=== PATIENT | female | born 2000 | race Caucasian/White ===

== ENCOUNTER 2023-04-05 08:28 | Emergency (ER) | payer OTHER ==
[~2023-04-05] VITALS: Ht 172.7 cm; Wt 60.7 kg
[2023-04-05 09:20] LABS: BASO # 0.1 10^3/uL (0.0-0.2); BASO % 0.8 % (0.0-1.0); EOS % 0.5 % (0.0-3.0); HEMATOCRIT 41.2 % (36.0-47.0); HEMOGLOBIN 14.5 g/dl (12.0-15.5); LYMPH # 1.4 10^3/uL (1.5-5.0); LYMPH % 21.9 % (24.0-44.0); MEAN CORPUSCULAR HGB CONC 35.2 g/dl (32.0-36.5); MEAN CORPUSCULAR VOLUME 88.2 fl (80.0-96.0); MONO # 0.5 10^3/uL (0.0-0.8); MONO % 7.8 % (2.0-8.0); NEUTROPHILS # 4.3 10^3/uL (1.5-8.5); NEUTROPHILS % 68.7 % (36.0-66.0); PLATELET COUNT, AUTOMATED 199 10^3/uL (150-450); RED BLOOD COUNT 4.67 10^6/uL (4.00-5.40); WHITE BLOOD COUNT 6.3 10^3/uL (4.0-10.0)
[2023-04-05 09:38] LABS: LIPASE 49 U/L (12-53)
[2023-04-05 09:40] LABS: ALBUMIN 4.2 G/DL (3.2-5.2); ALKALINE PHOSPHATASE 51 U/L (46-116); ALT/SGPT < 9 U/L (7.0-40); AMYLASE 63 U/L (30-118); AST/SGOT 9 U/L (<34); BILIRUBIN,DIRECT 0.4 MG/DL (<0.4); BILIRUBIN,TOTAL 1.2 MG/DL (0.3-1.2); TOTAL PROTEIN 6.9 G/DL (5.7-8.2)
[2023-04-05 10:49] LABS: HCG, SERUM QUANTITATIVE 181.6 MIU/ML (<4.2)
[2023-04-05 11:11] LABS: GC DNA AMPLIFICATION NEGATIVE (NEGATIVE)
[2023-04-05 11:31] VITALS: BP 118/59; TEMP 98.5; O2SAT 100
== END 2023-04-05 11:44 | disposition home or self-care (01) ==
LOC: M ED 08:28
DX: O26.891 Other specified pregnancy related conditions, first trimester (principal); R10.2 Pelvic and perineal pain; Z3A.01 Less than 8 weeks gestation of pregnancy; O99.341 Other mental disorders complicating pregnancy, first trimester; F90.9 Attention-deficit hyperactivity disorder, unspecified type; O99.331 Smoking (tobacco) complicating pregnancy, first trimester

== ENCOUNTER → 2023-04-08 | Outpatient (CLI) | payer OTHER | LOC: M LAB 09:15 | PROVIDERS: ATTEND Emergency Medicine | DX: Z33.1 Pregnant state, incidental (principal) ==

== ENCOUNTER 2023-08-09 18:58 | Inpatient (IN) | payer OTHER ==
[~2023-08-09] VITALS: Ht 172.7 cm; Wt 67.0 kg
[2023-08-09 19:33] LABS: BASO % 0.4 % (0.0-1.0); EOS % 0.2 % (0.0-3.0); HEMATOCRIT 34.6 % (36.0-47.0); HEMOGLOBIN 12.2 g/dl (12.0-15.5); LYMPH # 1.2 10^3/uL (1.5-5.0); LYMPH % 12.5 % (24.0-44.0); MEAN CORPUSCULAR HEMOGLOBIN 30.7 pg (27.0-33.0); MEAN CORPUSCULAR HGB CONC 35.3 g/dl (32.0-36.5); MEAN CORPUSCULAR VOLUME 87.2 fl (80.0-96.0); MONO # 0.4 10^3/uL (0.0-0.8); MONO % 4.3 % (2.0-8.0); NEUTROPHILS # 7.9 10^3/uL (1.5-8.5); NEUTROPHILS % 82.3 % (36.0-66.0); PLATELET COUNT, AUTOMATED 194 10^3/uL (150-450); RED BLOOD COUNT 3.97 10^6/uL (4.00-5.40); WHITE BLOOD COUNT 9.6 10^3/uL (4.0-10.0)
[2023-08-09] MEDS ORDERED: CHARCOAL ACTIVATED LIQUID 25GM/120ML BTL PO ONE (19:45)
[2023-08-09 19:48] LABS: AMPHETAMINES LEVEL URINE NEGATIVE (NEGATIVE); BARBITURATES URINE NEGATIVE (NEGATIVE); BENZODIAZEPINES URINE NEGATIVE (NEGATIVE); CANNABINOIDS URINE NEGATIVE (NEGATIVE); COCAINE METABOLITE URINE NEGATIVE (NEGATIVE); METHADONE URINE NEGATIVE (NEGATIVE); OPIATES URINE NEGATIVE (NEGATIVE); PHENCYCLIDINE URINE NEGATIVE (NEGATIVE)
[2023-08-09 19:49] LABS: ETHYL ALCOHOL (ETHANOL) 0.018 % (0.000-0.010)
[2023-08-09 19:50] LABS: SALICYLATE LEVEL < 3.0 MG/DL (<30)
[2023-08-09 19:51] LABS: ALBUMIN 3.4 G/DL (3.2-5.2); ALKALINE PHOSPHATASE 53 U/L (46-116); ALT/SGPT 12 U/L (7.0-40); AST/SGOT 22 U/L (<34); BILIRUBIN,DIRECT 0.2 MG/DL (<0.4); BILIRUBIN,TOTAL 0.4 MG/DL (0.3-1.2); BLOOD UREA NITROGEN 5 MG/DL (9-23); CALCIUM LEVEL 8.4 MG/DL (8.5-10.1); CARBON DIOXIDE LEVEL 20 MMOL/L (20-31); CHLORIDE LEVEL 108 MMOL/L (98-107); CPK CREATINE PHOSPHOKINASE 54 U/L (34-145); CREATININE FOR GFR 0.49 MG/DL (0.55-1.30); GLOMERULAR FILTRATION RATE > 60.0 (>60); GLUCOSE, FASTING 85 MG/DL (60-100); POTASSIUM SERUM 3.5 MMOL/L (3.5-5.1); SODIUM LEVEL 140 MMOL/L (136-145); TOTAL PROTEIN 6.4 G/DL (5.7-8.2)
[2023-08-09 19:53] LABS: THYROID STIMULATING HORMONE 2.169 uIU/ML (0.55-4.78)
[2023-08-09 19:59] LABS: RSV AMPLIFICATION NEGATIVE (NEGATIVE)
[2023-08-10] MEDS ORDERED: HOME MED LIST COMPLETE! XX SCH (02:50)
[2023-08-10] MEDS ORDERED: PRENATAL VITAMINS CHEWABLE TABLET PO SCH (09:00)
[2023-08-10] MEDS ORDERED: diphenhydrAMINE 25MG CAP PO PRN (10:05)
[2023-08-10] MEDS ORDERED: MOM 30ML SUSPENSION UDC PO PRN (10:05)
[2023-08-10] MEDS ORDERED: traZODone 50 MG TAB PO PRN (10:05)
[2023-08-10] MEDS ORDERED: MAALOX 30 ML SUSP *UDC PO PRN (10:05)
[2023-08-10] MEDS ORDERED: IBUPROFEN 400MG TAB PO PRN (10:05)
[2023-08-10] MEDS ORDERED: ACETAMINOPHEN TAB 650MG DOSE (2X325MG) PO PRN (10:05)
[2023-08-10 14:06] VITALS: BP 112/60; TEMP 99.1; O2SAT 100
[2023-08-11 06:22] VITALS: BP 101/64; TEMP 98.2; O2SAT 98
[2023-08-11] MEDS: SERTRALINE HCL 25 MG TABLET PO SCH (11:22)
[2023-08-11] MEDS: PRENATAL VITAMINS CHEWABLE TABLET PO SCH (11:47)
[2023-08-11 16:15] VITALS: BP 110/59; TEMP 98.9; O2SAT 98
[2023-08-12 06:32] VITALS: BP 92/58; TEMP 98; O2SAT 100
[2023-08-12] MEDS: SERTRALINE HCL 25 MG TABLET PO SCH (08:04)
[2023-08-12] MEDS: PRENATAL VITAMINS CHEWABLE TABLET PO SCH (08:04)
[2023-08-12 17:39] VITALS: BP 115/68; TEMP 98.6; O2SAT 100
[2023-08-13 06:39] VITALS: BP 99/57; TEMP 98.8; O2SAT 99
[2023-08-13] MEDS: PRENATAL VITAMINS CHEWABLE TABLET PO SCH (09:01)
[2023-08-13] MEDS: SERTRALINE HCL 25 MG TABLET PO SCH (09:01)
[2023-08-13 18:24] VITALS: BP 90/56; TEMP 99.4; O2SAT 98
[2023-08-14 06:00] VITALS: BP 104/59; TEMP 98.8; O2SAT 100
[2023-08-14] MEDS: PRENATAL VITAMINS CHEWABLE TABLET PO SCH (08:16)
[2023-08-14] MEDS: SERTRALINE HCL 25 MG TABLET PO SCH (08:16)
[2023-08-14] MEDS ORDERED: PRENCHW PO (09:18)
[2023-08-14] MEDS ORDERED: SERT25TA21 PO (09:18)
== END 2023-08-14 11:33 | disposition home or self-care (01) | DRG 833 ==
LOC: EDBD 18:58 → M ED 18:58 → M ED INP 08-10 10:01 → M PSY 08-10 14:07
PROVIDERS: ADMIT Student in an Organized Health Care Education/Training Program; ATTEND Student in an Organized Health Care Education/Training Program
DX: O99.342 Other mental disorders complicating pregnancy, second trimester (principal); Z63.0 Problems in relationship with spouse or partner; Z81.1 Family history of alcohol abuse and dependence; Z81.3 Family history of other psychoactive substance abuse and dependence; Z81.8 Family history of other mental and behavioral disorders; F32.A Depression, unspecified; T48.6X2A Poisoning by antiasthmatics, intentional self-harm, initial encounter; O9A.212 Injury, poisoning and certain other consequences of external causes complicating pregnancy, second trimester; Z3A.21 21 weeks gestation of pregnancy

== ENCOUNTER 2023-12-08 16:41 | Outpatient (CLI) | payer OTHER ==
[~2023-12-08] VITALS: Ht 172.7 cm; Wt 81.1 kg
[~2023-12-08 16:41] MED LIST: PRENCHW PO; SERT25TA21 PO
[2023-12-08 16:58] VITALS: BP 130/68
[2023-12-08] MEDS ORDERED: ACET325C5 PO (22:48)
== END 2023-12-08 17:45 | disposition home or self-care (01) ==
LOC: M LDO 16:41
PROVIDERS: ATTEND Obstetrics & Gynecology
DX: O46.93 Antepartum hemorrhage, unspecified, third trimester (principal); Z3A.38 38 weeks gestation of pregnancy; O99.343 Other mental disorders complicating pregnancy, third trimester; F32.A Depression, unspecified; F41.9 Anxiety disorder, unspecified; O36.63X0 Maternal care for excessive fetal growth, third trimester, not applicable or unspecified; Z91.51 Personal history of suicidal behavior
CPT/HCPCS: 59025; G0463

== ENCOUNTER 2023-12-08 22:41 | Outpatient (CLI) | payer OTHER ==
[~2023-12-08] VITALS: Ht 172.7 cm; Wt 81.6 kg
[2023-12-08] MEDS ORDERED: ACET325C5 PO (22:48)
[2023-12-08 22:57] VITALS: BP 122/75
[2023-12-08] MEDS ORDERED: HOME MED LIST COMPLETE! XX SCH (23:15)
[2023-12-08] MEDS: diphenhydrAMINE 50MG CAP PO ONE (23:27)
[2023-12-08] MEDS: ACETAMINOPHEN 500 MG TAB PO ONE (23:28)
[2023-12-09 01:17] VITALS: BP 120/62
[2023-12-09] MEDS: MORPHINE 10 MG/ML 1ML VIAL IV ONE (01:17)
[2023-12-09] MEDS: MORPHINE 10 MG/ML 1ML VIAL IM ONE (01:18)
[2023-12-09 01:40] LABS: BASO # 0.1 10^3/uL (0.0-0.2); BASO % 0.5 % (0.0-1.0); EOS # 0.1 10^3/uL (0.0-0.5); EOS % 0.5 % (0.0-3.0); HEMATOCRIT 32.7 % (36.0-47.0); HEMOGLOBIN 11.7 g/dl (12.0-15.5); LYMPH # 1.6 10^3/uL (1.5-5.0); LYMPH % 13.3 % (24.0-44.0); MEAN CORPUSCULAR HEMOGLOBIN 30.9 pg (27.0-33.0); MEAN CORPUSCULAR HGB CONC 35.8 g/dl (32.0-36.5); MEAN CORPUSCULAR VOLUME 86.3 fl (80.0-96.0); MONO # 0.6 10^3/uL (0.0-0.8); NEUTROPHILS # 9.6 10^3/uL (1.5-8.5); NEUTROPHILS % 80.4 % (36.0-66.0); PLATELET COUNT, AUTOMATED 157 10^3/uL (150-450); RED BLOOD COUNT 3.79 10^6/uL (4.00-5.40); WHITE BLOOD COUNT 11.9 10^3/uL (4.0-10.0)
[2023-12-09 02:17] VITALS: BP 109/56
[2023-12-09 03:19] VITALS: BP 104/58
[2023-12-09 04:20] VITALS: BP 105/56
== END 2023-12-09 05:25 | disposition home or self-care (01) ==
LOC: M LDO 22:41
PROVIDERS: ATTEND Obstetrics & Gynecology
DX: O47.1 False labor at or after 37 completed weeks of gestation (principal); Z3A.39 39 weeks gestation of pregnancy; O99.343 Other mental disorders complicating pregnancy, third trimester; F32.A Depression, unspecified; F41.9 Anxiety disorder, unspecified; Z91.51 Personal history of suicidal behavior; Z79.899 Other long term (current) drug therapy
CPT/HCPCS: 59025; 85025; 86780; 86850; 86900; 86901; 96374; G0463

== ENCOUNTER 2023-12-09 20:43 | Inpatient (IN) | payer OTHER ==
[~2023-12-09] VITALS: Ht 172.7 cm; Wt 82.8 kg
[~2023-12-09 20:43] MED LIST changes: +ACET325C5 PO
[2023-12-09 21:04] VITALS: BP 115/75
[2023-12-09] MEDS: PROMETHAZINE 25MG/ML 1ML VIAL IV ONE (21:38)
[2023-12-09] MEDS: BUTORPHANOL 2 MG/ML 1ML VIAL IV ONE (21:39)
[2023-12-10] VITALS (40 sets, daily range): BP systolic 98–134; BP diastolic 53–86
[2023-12-10 01:39] LABS: BASO # 0.1 10^3/uL (0.0-0.2); BASO % 0.6 % (0.0-1.0); EOS # 0.1 10^3/uL (0.0-0.5); HEMATOCRIT 36.6 % (36.0-47.0); HEMOGLOBIN 12.8 g/dl (12.0-15.5); LYMPH # 1.8 10^3/uL (1.5-5.0); LYMPH % 17.5 % (24.0-44.0); MEAN CORPUSCULAR HEMOGLOBIN 30.6 pg (27.0-33.0); MEAN CORPUSCULAR VOLUME 87.6 fl (80.0-96.0); MONO # 0.6 10^3/uL (0.0-0.8); MONO % 5.2 % (2.0-8.0); NEUTROPHILS # 7.9 10^3/uL (1.5-8.5); NEUTROPHILS % 75.4 % (36.0-66.0); PLATELET COUNT, AUTOMATED 171 10^3/uL (150-450); RED BLOOD COUNT 4.18 10^6/uL (4.00-5.40); WHITE BLOOD COUNT 10.5 10^3/uL (4.0-10.0)
[2023-12-10] MEDS ORDERED: BUTORPHANOL 2 MG/ML 1ML VIAL IV PRN (01:45)
[2023-12-10] MEDS ORDERED: TRANEXAMIC ACID INJection 1,000 MG in NS 100 ML IV PRN (01:50)
[2023-12-10] MEDS ORDERED: LIDOCAINE 1% MDV 20ML VIAL INFIL PRN (01:50)
[2023-12-10] MEDS ORDERED: OXYTOCIN INJ 10UNITS/ML 1ML VIAL IV PRN (01:50)
[2023-12-10] MEDS ORDERED: OXYTOCIN INJ 10UNITS/ML 1ML VIAL IM PRN (01:50)
[2023-12-10] MEDS ORDERED: CARBOPROST TROMETHAMINE 250 MCG/ML AMP IM PRN (01:50)
[2023-12-10] MEDS ORDERED: METHYLERGONOVINE MALEATE 0.2MG/ML 1ML VIAL IM PRN (01:50)
[2023-12-10] MEDS ORDERED: OXYTOCIN DRIP 30 UNITS in IV 1 EA IV PRN ×3 (01:50)
[2023-12-10] MEDS: PROMETHAZINE 25MG/ML 1ML VIAL IV ONE (02:09)
[2023-12-10] MEDS: BUTORPHANOL 2 MG/ML 1ML VIAL IV ONE (02:09)
[2023-12-10] MEDS: miSOPROStol 50MCG 1/2 TABLET PO ONE (03:06)
[2023-12-10] MEDS ORDERED: NALOXONE INJ 0.4MG/1ML VIAL IV PRN (04:35)
[2023-12-10] MEDS ORDERED: ePHEDrine SULFATE 25 MG/5 ML(5MG/ML) SYRINGE IVP PRN (04:35)
[2023-12-10] MEDS ORDERED: EPIDURAL/PCA KEYS XX PRN (04:35)
[2023-12-10] MEDS ORDERED: ONDANSETRON 4MG 2ML VIAL IV PRN ×2 (04:35→18:50)
[2023-12-10] MEDS ORDERED: LR 500 ML IV PRN (04:35)
[2023-12-10] MEDS: FENTANYL/ROPIVACAINE/NACL BAG 100 ML EPIDURAL SCH (05:00)
[2023-12-10] MEDS: LACTATED RINGER'S 1000 ML IV STA (05:18)
[2023-12-10] MEDS: LR 1,000 ML IV SCH (10:19)
[2023-12-10] MEDS: diphenhydrAMINE 50MG/ML VIAL IV PRN (13:42)
[2023-12-10] MEDS: diphenhydrAMINE 50MG/ML VIAL IV ONE (16:56)
[2023-12-10] MEDS: OXYTOCIN DRIP 30 UNITS in IV 1 EA IV SCH ×2 (17:07→19:28)
[2023-12-10] MEDS: ACETAMINOPHEN *IV* 1,000 MG in IV 1 EA IV ONE (17:23)
[2023-12-10] MEDS: LIDOCAINE 1% MDV 20ML VIAL INFIL PRN (18:18)
[2023-12-10] MEDS: OXYTOCIN DRIP 30 UNITS in IV 1 EA IV PRN (18:37)
[2023-12-10] MEDS ORDERED: IBUPROFEN 600MG TAB PO PRN (18:50)
[2023-12-10] MEDS ORDERED: METHYLERGONOVINE MALEATE 0.2 MG TAB PO PRN (18:50)
[2023-12-10] MEDS ORDERED: DIBUCAINE 1% OINTMENT 30GM TOP PRN (18:50)
[2023-12-10] MEDS: IBUPROFEN 800 MG TAB PO PRN (20:06)
[2023-12-10] MEDS: ACETAMINOPHEN 500 MG TAB PO PRN (20:56)
[2023-12-10] MEDS: DOCUSATE SODIUM 100MG CAPSULE PO PRN (20:56)
[2023-12-10] MEDS ORDERED: ACETAMINOPHEN TAB 650MG DOSE (2X325MG) PO PRN (21:00)
[2023-12-10] MEDS: SERTRALINE 100 MG TAB PO SCH (21:06)
[2023-12-11 06:00] VITALS: BP 122/75
[2023-12-11] MEDS: PRENATAL VITAMINS CHEWABLE TABLET PO SCH (08:08)
[2023-12-11 18:00] VITALS: BP 126/66; O2SAT 98
[2023-12-12 06:00] VITALS: BP 122/75; O2SAT 97
[2023-12-12] MEDS ORDERED: ZOLO100T PO (09:58)
[2023-12-12] MEDS ORDERED: IBUP-1022 PO (09:58)
[2023-12-12] MEDS ORDERED: COLA100C5 PO (09:58)
[2023-12-12] MEDS ORDERED: ACET1TAB55 PO (09:58)
== END 2023-12-12 12:00 | disposition home or self-care (01) | DRG 807 ==
LOC: M LDO 20:43 → M LDI 12-10 01:19 → M OBS 12-10 22:50
PROVIDERS: ADMIT Obstetrics & Gynecology; ATTEND Advanced Practice Midwife
PROC: 10E0XZZ Delivery of Products of Conception, External Approach (ICD-10-PCS; principal; 2023-12-10)
PROC: 0KQM0ZZ Repair Perineum Muscle, Open Approach (ICD-10-PCS; 2023-12-10)
PROC: 10907ZC Drainage of Amniotic Fluid, Therapeutic from Products of Conception, Via Natural or Artificial Opening (ICD-10-PCS; 2023-12-10)
PROC: 0W8NXZZ Division of Female Perineum, External Approach (ICD-10-PCS; 2023-12-10)
DX: O36.63X3 Maternal care for excessive fetal growth, third trimester, fetus 3 (principal); Z37.0 Single live birth; O99.344 Other mental disorders complicating childbirth; F32.A Depression, unspecified; Z79.899 Other long term (current) drug therapy; O70.1 Second degree perineal laceration during delivery; Z3A.39 39 weeks gestation of pregnancy